=== PATIENT | female | born 1980 | race African-American/Black ===

== ENCOUNTER 2019-03-06 18:19 | Emergency (ER) | payer SELFPAY ==
[~2019-03-06] VITALS: Ht 170.2 cm; Wt 95.0 kg
[~2019-03-06 18:19] MED LIST: ACET325T14 PO; BISM262T12 PO; IBUP-11 PO
[2019-03-06 18:44] VITALS: BP 188/106
--- NOTE | 2019-03-06 19:02 | NUR ---
ERP AT BS FOR EVAL.
== END 2019-03-06 19:27 | disposition home or self-care (01) ==
LOC: ED 19:12
DX: K08.89 Other specified disorders of teeth and supporting structures (principal); Z87.891 Personal history of nicotine dependence; R51 Headache
CPT/HCPCS: 99283

== ENCOUNTER 2020-05-28 17:46 | Emergency (ER) | payer BC ==
[~2020-05-28] VITALS: Ht 170.2 cm; Wt 105.3 kg
[2020-05-28 18:14] VITALS: BP 172/99
[2020-05-28] MEDS ORDERED: CEFTRIAXONE 250 MG IM ONE (18:30)
[2020-05-28] MEDS ORDERED: AZITHROMYCIN 500 MG TABLET PO ONE (18:30)
--- NOTE | 2020-05-28 19:59 | NUR ---
Pt to room at this time.
[2020-05-28] MEDS ORDERED: CEFTRIAXONE 250 MG ONE (20:02)
[2020-05-28] MEDS ORDERED: AZITHROMYCIN 250 MG TABLET ONE (20:02)
[2020-05-28] MEDS ORDERED: AZITHROMYCIN 500 MG TABLET ONE (20:09)
== END 2020-05-28 20:17 | disposition home or self-care (01) ==
LOC: ED 20:10
DX: A56.01 Chlamydial cystitis and urethritis (principal); A54.01 Gonococcal cystitis and urethritis, unspecified; Z20.2 Contact with and (suspected) exposure to infections with a predominantly sexual mode of transmission; Z87.891 Personal history of nicotine dependence
CPT/HCPCS: 87491; 87591; 96372; 99283; J0696

== ENCOUNTER 2021-06-06 21:54 | Emergency (ER) | payer BC, OTHER ==
[~2021-06-06] VITALS: Ht 170.2 cm; Wt 109.0 kg
[2021-06-06] MEDS ORDERED: DEXAMETHASONE 4 MG TABLET PO ONE (23:30)
[2021-06-06] MEDS ORDERED: IBUPROFEN 800 MG TABLET PO ONE (23:30)
[2021-06-07] MEDS ORDERED: ACETAMINOPHEN 325 MG TABLET ONE (00:30)
[2021-06-07] MEDS ORDERED: ACETAMINOPHEN 325 MG TABLET PO ONE (00:30)
[2021-06-07] MEDS ORDERED: IBUPROFEN 800 MG TABLET ONE (00:30)
[2021-06-07] MEDS ORDERED: BICILLIN-LA 1,200,000 UNITS/2 ML IM ONE (00:30)
[2021-06-07] MEDS ORDERED: DEXAMETHASONE 4 MG TABLET ONE (00:30)
[2021-06-07 00:41] VITALS: BP 175/103
--- NOTE | 2021-06-07 01:02 | NUR ---
Patient given discharge instructions and they have confirmed that they understand the instructions. Patient ambulatory with steady gait. NAD, all questions answered appropriately, denies additional needs at this time. No personal belongings left in room after discharge.
== END 2021-06-07 01:22 | disposition home or self-care (01) ==
LOC: ED 23:00
DX: J02.0 Streptococcal pharyngitis (principal); I10 Essential (primary) hypertension
CPT/HCPCS: 87880; 93005; 96372; 99284; J0561